=== PATIENT | male | born 1965 | race Hispanic/Latino ===

== ENCOUNTER → 2017-09-22 | Outpatient (CLI) | payer BC ==
[~2017-09-22] MED LIST: CEFUROXIME PO; EXFORGE 5-1601 EACH PO; HYDROCODON-ACE1 EAC9 PO; LEVAQUIN750 MG PO; LIPITOR20 MG PO; MELOXICAM15 MG PO; METFORMIN HCL500 MG PO; OXYBUTYNIN CHLO10 MG PO; URIBEL CAPSULE1 EACH PO; [UNRECOGNIZED DRUG - REMARK]
--- NOTE | 2017-09-22 10:02 | Diagnostic Imaging Report ---
PROCEDURE: X-RAY CHEST, TWO VIEWS COMPARISON: 08/05/2016. INDICATIONS: SHOULDER PAIN, PLEURISY FINDINGS: Lungs are well-inflated. No focal consolidation, pleural effusion, or pneumothorax. Cardiomediastinal contour and pulmonary vasculature are within normal limits. No acute osseous abnormality. CONCLUSION: No acute cardiopulmonary abnormality. Dictated by: Obey Austin M.D. on 09/22/2017 at 10:01 Electronically approved by: Obey Austin M.D. on 09/22/2017 at 10:01
== END ==
LOC: RAD 09:34
PROVIDERS: ATTEND Family Medicine
DX: R09.1 Pleurisy (principal)
CPT/HCPCS: 71046

== ENCOUNTER → 2017-11-05 | Outpatient (CLI) | payer BC ==
[~2017-11-05] MED LIST changes: +DIATRIZOATE MEGL/DIATRIZOA SOD 30 ML BTL PO ONE; +IOPAMIDOL 370 MG/ML 200 ML INFUS..BTL INJ ONE; +SODIUM CHLORIDE 0.9% 50ML 50 ML ONE
[2017-11-05 08:05] LABS: BLOOD UREA NITROGEN 12 mg/dL (7-26); BUN/CREATININE RATIO 16 (6-25); CREATININE, SERUM 0.74 mg/dL (0.72-1.25); EST GLOMERULAR FILTRATION RATE > 60 ML/MIN (60-)
--- NOTE | 2017-11-05 09:29 | Diagnostic Imaging Report ---
PROCEDURE:CT PELVIS WITH CONTRAST COMPARISON:None available. INDICATIONS:PELVIC PAIN TECHNIQUE:Multidetector imaging of the pelvis was performed from the level of the pelvic inlet to below the pubic symphysis after the IV administration of 100 cc Isovue 370. Oral Gastroview was also given. Scanning during post contrast phase was performed. Coronal and sagittal multiplanar reformations were obtained. FINDINGS: The visualized portions of the small bowel and colon are normal. Normal appendix. Moderate amount of retained feces limits intraluminal evaluation of the colon. The partially visualized distal ureters are normal, without hydroureter. Normal urinary bladder. No pelvic lymphadenopathy. No drainable fluid collection. The visualized osseous structures are unremarkable. The distal abdominal aorta and bilateral iliac arteries are normal. No inguinal hernia is visualized. CONCLUSION: No acute abnormality of the pelvis. Dictated by: Jroge Briones M.D. on 11/05/2017 at 9:31 Electronically approved by: Jorge Briones M.D. on 11/05/2017 at 9:31
== END ==
LOC: CT 07:11
PROVIDERS: ATTEND Surgery
DX: R10.32 Left lower quadrant pain (principal)
CPT/HCPCS: 36415; 72193; 82565; 84520; Q9967

== ENCOUNTER → 2019-03-10 | Outpatient (CLI) | payer BC ==
[~2019-03-10] MED LIST changes: -DIATRIZOATE MEGL/DIATRIZOA SOD 30 ML BTL PO ONE; -IOPAMIDOL 370 MG/ML 200 ML INFUS..BTL INJ ONE; -SODIUM CHLORIDE 0.9% 50ML 50 ML ONE
--- NOTE | 2019-03-10 10:55 | Diagnostic Imaging Report ---
EXAMINATION: CHEST 2 VIEWS INDICATION: Cough COMPARISON: None FINDINGS: LINES/TUBES:None LUNGS:The lungs are well-inflated. No focal consolidation or pulmonary edema. PLEURA:No pleural effusion or pneumothorax. MEDIASTINUM:The cardiomediastinal silhouette appears normal in size and shape. BONES/SOFT TISSUES:No acute osseous injury. Mild degenerative changes of the visualized spine. ABDOMEN:No free air under the diaphragm. IMPRESSION: No focal pneumonia or pulmonary edema. Signed by: Simona Godinez MD on 03/10/2019 10:51 AM
== END ==
LOC: RAD 09:41
PROVIDERS: ATTEND Family Medicine
DX: R05 Cough (principal)
CPT/HCPCS: 71046

== ENCOUNTER 2021-06-07 06:17 | Observation (INO) | payer BC, OTHER ==
[2021-06-05 15:09] LABS: BASOPHILS % 0.6 % (0.0-1.0); EOSINOPHILS # (AUTO) 0.1 (0.0-0.4); EOSINOPHILS % 0.9 % (0.0-6.0); HEMATOCRIT 42.2 % (38.2-49.6); HEMOGLOBIN 14.4 g/dL (14.0-18.0); LYMPHOCYTES # (AUTO) 2.2 (1.0-3.2); LYMPHOCYTES % 33.4 % (18.0-39.1); MEAN CORPUSCULAR HEMOGLOBIN 30.7 pg (28-32); MEAN CORPUSCULAR HGB CONC 34.1 g/dL (31-35); MONOCYTES # (AUTO) 0.5 (0.2-0.8); MONOCYTES % 7.6 % (4.4-11.3); NEUTROPHILS # (AUTO) 3.8 (2.1-6.9); NEUTROPHILS % 57.1 % (38.7-80.0); PLATELET COUNT 282 x10e3/uL (140-360); RED BLOOD COUNT 4.69 x10e6/uL (4.3-5.7)
[2021-06-05 15:23] LABS: INR 0.92; PROTHROMBIN TIME 13.1 seconds (11.9-14.5)
[2021-06-05 15:24] LABS: PARTIAL THROMBOPLASTIN TIME 28.6 seconds (23.8-35.5)
[2021-06-05 15:28] LABS: ANION GAP 14.5 mmol/L (8-16); CALCIUM 9.5 mg/dL (8.4-10.2); CREATININE, SERUM 0.91 mg/dL (0.72-1.25); POTASSIUM 4.5 mmol/L (3.5-5.1)
[~2021-06-07] VITALS: Ht 185.4 cm; Wt 113.9 kg
[~2021-06-07 06:17] MED LIST changes: +AMLODIPINE BESYL5 MG PO; +BENICAR20 MG PO; +CRESTOR10 MG PO; +GLIPIZIDE ER5 MG PO; +JANUVIA100 MG PO
[2021-06-07] MEDS ORDERED: THROMBIN FOR SOLN 5,000 UNIT VIAL ONE ×2 (06:44)
[2021-06-07] MEDS ORDERED: LIDOCAINE 1% W/EPINEPHRINE 20 ML VIAL ONE (06:44)
[2021-06-07] MEDS ORDERED: Vancomycin IV 1 GM VIAL ONE (06:44)
[2021-06-07] MEDS ORDERED: SODIUM CHLORIDE 0.9% 50ML 100 ML ONE (08:02)
[2021-06-07] MEDS ORDERED: LIDOCAINE HCL (LTA) 4 ML SOLN ONE (08:55)
[2021-06-07] MEDS ORDERED: CARISOPRODOL 350 MG TAB PO PRN (10:00)
[2021-06-07] MEDS ORDERED: HYDROMORPHONE 2MG/ML 2 MG/ML ML IV PRN (10:00)
[2021-06-07] MEDS ORDERED: Morphine 4mg Syringe 4 MG/ML INJ IM PRN (10:00)
[2021-06-07] MEDS ORDERED: PROMETHAZINE HCL (IM) 25 MG/ML VIAL IM PRN (10:00)
[2021-06-07] MEDS ORDERED: ZOLPIDEM TARTRATE 5 MG TAB PO PRN (10:00)
[2021-06-07] MEDS ORDERED: HYDROCODON-ACE1 EA12 PO (10:00)
[2021-06-07] MEDS ORDERED: MAGNESIUM/ALUMINUM/SIMETHICONE 30 ML UDC PO PRN (10:00)
[2021-06-07] MEDS ORDERED: ONDANSETRON HCL INJ 2MG/ML 2ML 2 MG/ML VIAL IV PRN (10:00)
[2021-06-07] MEDS: LACTATED RINGER'S 1,000 ML IV SCH ×2 (11:30→19:50)
[2021-06-07] MEDS: OXYCODONE/ACETAMINOPHEN 5-325 1 EACH TABLET PO PRN (11:50)
[2021-06-07] MEDS ORDERED: LIDOCAINE HCL 2% LOCAL INJ 5 ML SDV VIAL INJ ONE (12:21)
[2021-06-07] MEDS ORDERED: ONDANSETRON HCL INJ 2MG/ML 2ML 2 MG/ML VIAL ONE (12:21)
[2021-06-07] MEDS ORDERED: POVIDONE IODINE 0.05% 0.05 % ML PO ONE (12:21)
[2021-06-07] MEDS ORDERED: SEVOFLURANE INHAL SOLN 250 ML PEN BTL ONE (12:21)
[2021-06-07] MEDS ORDERED: DEXAMETHASONE SOD PHOS INJ 4 MG/ML SDV ONE (12:21)
[2021-06-07] MEDS ORDERED: ROCURONIUM BROMIDE 10 MG/ML 5ML VIAL IV ONE (12:21)
[2021-06-07] MEDS ORDERED: PROPOFOL IV EMULSION 10 MG/ML 20 ML VIAL ONE (12:21)
[2021-06-07 12:49] VITALS: BP 132/72
[2021-06-07 12:51] VITALS: BP 132/72
[2021-06-07 13:00] VITALS: BP 132/72
[2021-06-07] MEDS ORDERED: MIDAZOLAM HCL 2 MG/2 ML VIAL ONE (13:05)
[2021-06-07] MEDS ORDERED: FENTANYL CITRATE/PF 100MCG/2 ML INJ ONE (13:05)
[2021-06-07] MEDS: METFORMIN HCL 500 MG TAB PO SCH (16:10)
[2021-06-07] MEDS: ACETAMINOPHEN 325 MG TAB PO PRN ×2 (16:10→22:31)
[2021-06-07] MEDS: Cefazolin 1 GM in SODIUM CHLORIDE 0.9% 50ML 50 ML IV SCH (16:10)
[2021-06-07] MEDS: GLIPIZIDE 5 MG TAB ER PO SCH (16:10)
[2021-06-07 16:56] VITALS: BP 132/77
[2021-06-07 20:00] VITALS: BP 146/69
[2021-06-07] MEDS ORDERED: DEXTROSE 50% SYRINGE 50 ML IV PRN (21:00)
[2021-06-07 21:34] VITALS: BP 146/69
[2021-06-07] MEDS: INSULIN REGULAR, HUMAN 100 UNIT/1 ML SQ SCH (22:21)
[2021-06-08] VITALS: BP 113/75
[2021-06-08] MEDS: Cefazolin 1 GM in SODIUM CHLORIDE 0.9% 50ML 50 ML IV SCH ×2 (00:30→08:31)
[2021-06-08 04:00] VITALS: BP 131/67
[2021-06-08 07:48] VITALS: BP 131/74
[2021-06-08 08:00] VITALS: BP 131/74
[2021-06-08] MEDS ORDERED: ONDANSETRON HCL 4 MG ORAL DISINTEGRATING TAB PO PRN (08:30)
[2021-06-08] MEDS: METFORMIN HCL 500 MG TAB PO SCH (08:32)
[2021-06-08] MEDS: GLIPIZIDE 5 MG TAB ER PO SCH (08:32)
[2021-06-08] MEDS: OXYCODONE/ACETAMINOPHEN 5-325 1 EACH TABLET PO PRN (08:34)
[2021-06-08] MEDS: INSULIN REGULAR, HUMAN 100 UNIT/1 ML SQ SCH (08:36)
[2021-06-08] MEDS ORDERED: CRESTOR 10MG PO SCH (09:00)
[2021-06-08] MEDS ORDERED: SIMVASTATIN 40 MG TAB PO SCH (09:00)
[2021-06-08] MEDS ORDERED: AMLODIPINE BESYLATE 5 MG TAB PO SCH (09:00)
[2021-06-08] MEDS ORDERED: SITAGLIPTIN 100 MG TAB PO SCH (09:00)
[2021-06-08] MEDS ORDERED: OLMESARTAN 20 MG TAB PO SCH (09:00)
== END 2021-06-08 10:22 | disposition home or self-care (01) ==
LOC: OR 06:17 → PACU V 09:58 → MED/SURG 10:52
PROVIDERS: ADMIT Neurological Surgery; ATTEND Neurological Surgery
DX: M50.123 Cervical disc disorder at C6-C7 level with radiculopathy (principal); E11.9 Type 2 diabetes mellitus without complications; Z87.442 Personal history of urinary calculi; I10 Essential (primary) hypertension; E78.5 Hyperlipidemia, unspecified; Z79.84 Long term (current) use of oral hypoglycemic drugs; Z01.810 Encounter for preprocedural cardiovascular examination; Z01.812 Encounter for preprocedural laboratory examination; Z01.818 Encounter for other preprocedural examination; Z20.822 Contact with and (suspected) exposure to COVID-19; E66.9 Obesity, unspecified; Z68.33 Body mass index [BMI] 33.0-33.9, adult
CPT/HCPCS: 20931; 22551; 22845; 36415 ×3; 71046; 72040; 76000; 80048; 82948 ×2; 85025; 85610; 85730; 86850; 86900; 88304; 93005; 96367; G0378 ×2; J0690 ×2; J1100; J1817; J2001; J2250; J2405; J2704; J3010; J3370; U0002; J7121

== ENCOUNTER → 2021-06-28 | Outpatient (CLI) | payer OTHER ==
[~2021-06-28] MED LIST changes: +HYDROCODON-ACE1 EA12 PO
== END ==
LOC: RAD 13:32
PROVIDERS: ATTEND Neurological Surgery
DX: M50.20 Other cervical disc displacement, unspecified cervical region (principal); M43.22 Fusion of spine, cervical region
CPT/HCPCS: 72050

== ENCOUNTER → 2021-10-29 | Outpatient (CLI) | payer OTHER | LOC: RAD 11:25 | PROVIDERS: ATTEND Family Medicine | DX: J18.9 Pneumonia, unspecified organism (principal) | CPT/HCPCS: 71046 ==

== ENCOUNTER → 2021-12-05 | Outpatient (CLI) | payer OTHER | LOC: RAD 12:50 | PROVIDERS: ATTEND Neurological Surgery | DX: M50.20 Other cervical disc displacement, unspecified cervical region (principal); M43.22 Fusion of spine, cervical region | CPT/HCPCS: 72050 ==

== ENCOUNTER 2022-09-17 07:56 | Emergency (ER) | payer BC, OTHER ==
[~2022-09-17] VITALS: Ht 185.4 cm; Wt 113.9 kg
[2022-09-17] MEDS ORDERED: CYCLOBENZAPRINE10 MG PO (08:16)
== END 2022-09-17 11:09 | disposition home or self-care (01) ==
LOC: ER 08:05
DX: M54.2 Cervicalgia (principal); I10 Essential (primary) hypertension; E11.9 Type 2 diabetes mellitus without complications; E78.5 Hyperlipidemia, unspecified; V89.2XXA Person injured in unspecified motor-vehicle accident, traffic, initial encounter; Y92.410 Unspecified street and highway as the place of occurrence of the external cause; Z79.84 Long term (current) use of oral hypoglycemic drugs; Z79.899 Other long term (current) drug therapy
CPT/HCPCS: 99283

== ENCOUNTER 2024-05-24 09:27 | Emergency (ER) | payer OTHER ==
[~2024-05-24] VITALS: Ht 185.4 cm; Wt 117.9 kg
[~2024-05-24 09:27] MED LIST changes: +CYCLOBENZAPRINE10 MG PO
[2024-05-24 09:40] VITALS: PULSE 90; RESP 18; TEMP 98.8
[2024-05-24 10:33] LABS: BASOPHILS % 0.4 % (0.0-1.0); EOSINOPHILS % 0.6 % (0.0-6.0); HEMATOCRIT 40.1 % (38.2-49.6); HEMOGLOBIN 13.4 g/dL (14.0-18.0); LYMPHOCYTES # (AUTO) 1.1 (1.0-3.2); LYMPHOCYTES % 24.1 % (18.0-39.1); MEAN CORPUSCULAR HGB CONC 33.4 g/dL (31-35); MEAN CORPUSCULAR VOLUME 95.7 fL (81-99); MONOCYTES # (AUTO) 0.7 (0.2-0.8); MONOCYTES % 14.7 % (4.4-11.3); NEUTROPHILS # (AUTO) 2.8 (2.1-6.9); NEUTROPHILS % 59.1 % (38.7-80.0); PLATELET COUNT 259 x10e3/uL (140-360); RED BLOOD COUNT 4.19 x10e6/uL (4.3-5.7); RED CELL DISTRIBUTION WIDTH 12.3 % (11.7-14.4); WHITE BLOOD COUNT 4.69 x10e3/uL (4.8-10.8)
[2024-05-24 10:52] LABS: ALBUMIN 3.6 g/dL (3.5-5.0); ANION GAP 15.5 mmol/L (8-16); BILIRUBIN,TOTAL 0.3 mg/dL (0.2-1.2); CALCIUM 9.8 mg/dL (8.4-10.2); CREATININE, SERUM 0.73 mg/dL (0.72-1.25); POTASSIUM 4.5 mmol/L (3.5-5.1); TOTAL PROTEIN 7.1 g/dL (6.5-8.1)
[2024-05-24] MEDS ORDERED: IOPAMIDOL 370 MG/ML 100 ML INFUS..BTL INJ ONE (10:54)
[2024-05-24] MEDS ORDERED: DOXYCYCLINE HY100 MG PO (13:23)
[2024-05-24] MEDS ORDERED: CEFDINIR300 MG PO (13:23)
[2024-05-24 14:07] VITALS: BP 145/78; PULSE 89; RESP 18; TEMP 97.6; O2SAT 98
[2024-05-24 14:21] LABS: BILIRUBIN,URINE NEGATIVE (NEGATIVE); CLARITY,URINE CLEAR (CLEAR); COLOR,URINE YELLOW (YELLOW); GLUCOSE, URINE NEGATIVE (NEGATIVE); KETONES,URINE NEGATIVE (NEGATIVE); LEUKOCYTE ESTERASE ,URINE TRACE (NEGATIVE); NITRITE,URINE NEGATIVE (NEGATIVE); PH,URINE 6.5 (5 - 7); PROTEIN,URINE DIPSTICK NEGATIVE (NEGATIVE); URINE UROBILINOGEN 0.2 mg/dL (0.2 - 1)
[2024-05-24 14:33] LABS: BACTERIA,URINE FEW /HPF
== END 2024-05-24 14:08 | disposition home or self-care (01) ==
LOC: ER 09:35
DX: R10.30 Lower abdominal pain, unspecified (principal); N41.9 Inflammatory disease of prostate, unspecified; R30.0 Dysuria; E11.65 Type 2 diabetes mellitus with hyperglycemia; I10 Essential (primary) hypertension; K21.9 Gastro-esophageal reflux disease without esophagitis
CPT/HCPCS: 36415; 74177; 80053; 81001; 85025; 87086; 99284; Q9967